=== PATIENT | female | born 1955 | race African-American/Black ===

== ENCOUNTER 2017-06-06 11:59 | Emergency (ER) | payer MEDICAID ==
[~2017-06-06] VITALS: Ht 167.6 cm; Wt 62.0 kg
[2017-06-06] MEDS: KETOROLAC 60MG/2ML VIAL IM ONE (15:05)
[2017-06-06 16:10] VITALS: BP 114/64
== END 2017-06-06 16:35 | disposition home or self-care (01) ==
LOC: ER 15:26
DX: M77.52 Other enthesopathy of left foot and ankle (principal); M25.552 Pain in left hip; I10 Essential (primary) hypertension; E78.00 Pure hypercholesterolemia, unspecified; W06.XXXA Fall from bed, initial encounter; Y93.89 Activity, other specified; Y92.89 Other specified places as the place of occurrence of the external cause; Y99.8 Other external cause status
CPT/HCPCS: 73502; 73630; 96372; 99284; J1885